=== PATIENT | female | born 1985 | race Caucasian/White ===

== ENCOUNTER 2023-09-23 04:57 | Emergency (ER) | payer OTHER ==
[~2023-09-23] VITALS: Ht 162.6 cm; Wt 74.0 kg
[2023-09-23 05:01] VITALS: O2SAT 98
[2023-09-23 06:03] LABS: BASOPHILS % 0.7 % (0.0-2.0); EOSINOPHILS % 1.3 % (0.0-5.0); HEMATOCRIT. 38.1 % (36.0-48.0); HEMOGLOBIN. 13.2 g/dL (12.0-16.0); LYMPHOCYTES % 34.1 % (20.0-50.0); MEAN CORPUSCULAR HEMOGLOBIN 32.4 pg (28.0-32.0); MEAN CORPUSCULAR HGB CONC 34.7 g/dL (31.0-37.0); MEAN CORPUSCULAR VOLUME 93.1 fL (81.0-99.0); MEAN PLATELET VOLUME 8.7 fl (7.4-10.4); MONOCYTES % 6.7 % (2.0-8.0); NEUTROPHILS % 57.2 % (40.0-76.0); PLATELET 287 x1000/uL (130-400); RED BLOOD CELL COUNT 4.09 mill/uL (4.2-5.4); RED CELL DISTRIBUTION WIDTH 13.2 % (11.6-14.6); WHITE BLOOD COUNT 6.1 x1000/uL (4.5-11.0)
[2023-09-23 06:06] LABS: CHLORIDE 111 mEq/L (98-107); POTASSIUM 3.7 mEq/L (3.5-5.1); SODIUM 140 mEq/L (136-145)
[2023-09-23 06:07] LABS: CARBON DIOXIDE 20 mEq/L (21-32)
[2023-09-23 06:08] LABS: CALCIUM 8.5 mg/dL (8.7-10.4)
[2023-09-23 06:12] LABS: CREATININE 0.6 mg/dL (0.6-1.0); GLUCOSE 126 mg/dL (70-105); UREA NITROGEN BLOOD 12 mg/dL (9-23)
[2023-09-23 06:13] LABS: TROPONIN I HIGH SENSITIVITY 9 ng/L (3.0-34)
[2023-09-23 06:14] LABS: ALANINE AMINOTRANSFERASE 42 IU/L (10-49); ALBUMIN 4.5 g/dL (3.2-4.8); ASPARTATE AMINOTRANSFERASE 40 IU/L (<34)
[2023-09-23 06:15] LABS: BILIRUBIN TOTAL 0.4 mg/dL (0.1-1.0); PROTEIN TOTAL 7.8 g/dL (6.0-8.3)
[2023-09-23 07:13] VITALS: BP 145/99; PULSE 101; RESP 16; TEMP 97.9
[2023-09-23 07:18] LABS: HCG SCREEN NEGATIVE
== END 2023-09-23 07:22 | disposition home or self-care (01) ==
LOC: ER 05:35
DX: R00.2 Palpitations (principal)
CPT/HCPCS: 80053; 84703; 85025; 84484; 36415; 71045; 93005; 99285; Z7610